=== PATIENT | female | born 1940 | race Caucasian/White ===

== ENCOUNTER 2019-11-14 17:15 | Observation (INO) ==
[2019-11-14] MEDS ORDERED: Isovue-370 500 ML BOTTLE IVP ONE (17:44)
[2019-11-14 18:33] LABS: Basophils % 0.4 %; Eosinophils # 0.1 K/mcL (0.0-0.6); Eosinophils % 1.4 %; Hematocrit 30.9 % (35.3-44.9); Hemoglobin 9.5 g/dL (11.5-15.4); Immature Granulocytes % 0.3 % (0-4); Lymphocytes # 1.7 K/mcL (0.6-4.6); Lymphocytes % 24.2 %; Mean Corpuscular HGB Conc 30.7 g/dL (31.6-35.5); Mean Corpuscular Hemoglobin 27.1 pg (28.0-33.3); Mean Platelet Volume 10.2 fL (9.4-12.4); Monocytes # 0.5 K/mcL (0.0-1.3); Monocytes % 7.1 %; Neutrophils # 4.6 K/mcL (1.6-8.9); Platelet Count 275 K/mcL (140-400); Red Blood Count 3.51 M/mcL (3.82-4.97); Red Cell Distribution Width 13.6 % (11.5-14.5); Segmented Neutrophils % 66.6 %; White Blood Count 6.9 K/mcL (4.3-11.1)
[2019-11-14 18:47] LABS: Bilirubin,Urine Negative (Negative); Blood,Urine Negative (Negative); Clarity,Urine Clear (Clear); Color,Urine Yellow (Yellow); Glucose,Urine (UA) Normal (Normal); Ketones,Urine Negative (Negative); Leukocyte Esterase,Urine Small (Negative); Nitrite,Urine Negative (Negative); PH,Urine 6.5 pH Units (5.0-8.0); Protein,Urine Negative (Neg-Trace); Specific Gravity,Urine 1.009 (1.010-1.025); Urobilinogen,Urine Normal (Normal)
[2019-11-14 18:49] LABS: Bacteria,Urine None Seen per hpf (None-Few); Hyaline Casts,Urine None Seen per lpf (None-Few); RBC,Urine 0-3 per hpf (0-3); Squamous Epithelial Cell,Urine Few per lpf (None-Few); WBC,Urine 0-3 per hpf (0-3)
[2019-11-14 19:04] LABS: Alanine Aminotransferase 10 Units/L (7-52); Albumin/Globulin Ratio 1.5 (1.1-2.2); Alkaline Phosphatase 76 Units/L (34-104); Aspartate Amino Transferase 15 Units/L (13-39); BUN/Creatinine Ratio 17 (6-26); Bilirubin,Direct 0.1 mg/dL (0.0-0.2); Bilirubin,Indirect 0.2 mg/dL (0.0-1.0); Bilirubin,Total 0.3 mg/dL (0.3-1.0); Blood Urea Nitrogen 21 mg/dL (8-23); Calcium 9.8 mg/dL (8.6-10.3); Carbon Dioxide 31 mEq/L (23-29); Chloride 99 mEq/L (98-107); Globulin 2.6 g/dL (2.4-3.5); Glucose 177 mg/dL (70-105); Osmolality,Calculated 291 (280-300); Potassium 4.2 mEq/L (3.5-5.1); Sodium 137 mEq/L (136-145); Total Protein 6.6 g/dL (6.4-8.9); eGFR For African Americans 52 (> 60); eGFR For Non-African Americans 43 (> 60)
[2019-11-14 19:11] LABS: Troponin I < 0.03 ng/mL (< 0.04)
[2019-11-14 21:54] LABS: INR 1.2; Prothrombin Time 13.1 Seconds (9.4-12.1)
[2019-11-14] MEDS ORDERED: Ondansetron 4 MG/2 ML VIAL IVP PRN (22:54)
[2019-11-14] MEDS ORDERED: Naloxone 0.4 MG/ML INJ IVP PRN (22:54)
[2019-11-14] MEDS ORDERED: Dextrose Gel 15 GM/37.5 ML TUBE PO PRN ×2 (23:00)
[2019-11-14] MEDS ORDERED: *HR* Dextrose 50 % in Water (Syg) 50 ML SYRINGE IVP PRN (23:00)
[2019-11-14] MEDS ORDERED: 0.9 % Sodium Chloride 1,000 ML IVC SCH (23:00)
[2019-11-14] MEDS ORDERED: D5% in Water 1,000 ML IVC PRN (23:00)
[2019-11-15] MEDS: Acetaminophen 325 MG TABLET PO PRN ×2 (00:05→05:45)
[2019-11-15] MEDS: Insulin LISPRO 300 UNITS/3 ML VIAL SQ SCH ×5 (00:20→21:21)
[2019-11-15 03:55] LABS: Estimated Average Glucose 235 mg/dl
[2019-11-15 05:58] LABS: Hematocrit 30.8 % (35.3-44.9); Hemoglobin 9.4 g/dL (11.5-15.4); Mean Corpuscular HGB Conc 30.5 g/dL (31.6-35.5); Mean Corpuscular Hemoglobin 27.4 pg (28.0-33.3); Mean Corpuscular Volume 89.8 fL (83.0-100.0); Mean Platelet Volume 11.2 fL (9.4-12.4); Platelet Count 270 K/mcL (140-400); Red Blood Count 3.43 M/mcL (3.82-4.97); Red Cell Distribution Width 13.9 % (11.5-14.5); White Blood Count 7.3 K/mcL (4.3-11.1)
[2019-11-15 06:25] LABS: Calcium 9.6 mg/dL (8.6-10.3); Potassium 3.9 mEq/L (3.5-5.1)
[2019-11-15] MEDS: Gabapentin 300 MG CAPSULE PO SCH ×4 (08:57→21:20)
[2019-11-15] MEDS ORDERED: Loratadine 10 MG TABLET PO SCH (09:00)
[2019-11-15] MEDS ORDERED: Lisinopril 20 MG TABLET PO SCH (09:00)
[2019-11-15] MEDS ORDERED: Furosemide 40 MG TABLET PO SCH (09:00)
[2019-11-15] MEDS ORDERED: amLODIPine 5 MG TABLET PO SCH (10:00)
[2019-11-16 07:16] VITALS: BP 176/68
[2019-11-16] MEDS ORDERED: Lisinopril 20 MG TABLET PO SCH (09:00)
== END 2019-11-16 09:43 | disposition home or self-care (01) ==
LOC: 3BNU 17:15 → EMEROOARM 17:15 → 3BNU 23:04
PROVIDERS: ADMIT Family Medicine; ATTEND Family Medicine

== ENCOUNTER 2020-12-07 19:43 | Inpatient (IN) ==
[2020-12-07] MEDS ORDERED: Ondansetron 4 MG/2 ML VIAL IVP PRN (21:28)
[2020-12-07] MEDS ORDERED: Naloxone 0.4 MG/ML INJ IVP PRN (21:28)
[2020-12-07] MEDS ORDERED: Dextrose Gel 15 GM/37.5 ML TUBE PO PRN ×2 (21:35)
[2020-12-07] MEDS ORDERED: D5% in Water 1,000 ML IVC PRN (21:35)
[2020-12-07] MEDS ORDERED: *HR* Dextrose 50 % in Water (Vial) 50 ML VIAL IVP PRN (21:35)
[2020-12-07] MEDS: 0.9 % Sodium Chloride 1,000 ML IVC SCH (22:34)
[2020-12-08] MEDS: *HR* OxyCODONE/APAP 10/325 TABLET PO PRN ×2 (03:54→11:10)
[2020-12-08] MEDS: 0.9 % Sodium Chloride 1,000 ML IVC SCH ×2 (05:32→18:14)
[2020-12-08 05:34] LABS: INR 1.4; Prothrombin Time 15.8 Seconds (9.4-12.1)
[2020-12-08 06:01] LABS: Basophils % 0.3 %; Red Blood Count 2.65 M/mcL (3.82-4.97); Red Cell Distribution Width 16.2 % (11.5-14.5)
[2020-12-08 06:02] LABS: Eosinophils # 0.1 K/mcL (0.0-0.6); Eosinophils % 0.7 %; Hematocrit 22.8 % (35.3-44.9); Hemoglobin 6.3 g/dL (11.5-15.4); Immature Granulocytes % 0.3 % (0-4); Lymphocytes # 1.1 K/mcL (0.6-4.6); Lymphocytes % 16.4 %; Mean Corpuscular HGB Conc 27.6 g/dL (31.6-35.5); Mean Corpuscular Hemoglobin 23.8 pg (28.0-33.3); Mean Platelet Volume 10.1 fL (9.4-12.4); Monocytes # 0.6 K/mcL (0.0-1.3); Monocytes % 8.3 %; Platelet Count 203 K/mcL (140-400); White Blood Count 6.8 K/mcL (4.3-11.1)
[2020-12-08 06:14] LABS: Albumin/Globulin Ratio 1.4 (1.1-2.2); Bilirubin,Total 0.3 mg/dL (0.3-1.0); Calcium 8.5 mg/dL (8.6-10.3); Globulin 2.8 g/dL (2.4-3.5); Magnesium 1.6 mg/dL (1.6-2.6); Phosphorous 4.8 mg/dL (2.7-4.5); Potassium 3.9 mEq/L (3.5-5.1); Total Protein 6.8 g/dL (6.4-8.9)
[2020-12-08 07:11] LABS: Folate > 22.3 ng/mL (3.0-16.0); Vitamin B12 151 pg/mL (250-1100)
[2020-12-08] MEDS: Apixaban 5 MG TABLET PO SCH ×2 (07:59→20:55)
[2020-12-08] MEDS: Insulin LISPRO 300 UNITS/3 ML VIAL SUBQ SCH ×4 (08:19→20:56)
[2020-12-08] MEDS: Acetaminophen 325 MG TABLET PO PRN (08:20)
[2020-12-08 10:10] LABS: Hemoglobin 7.5 g/dL (11.5-15.4)
[2020-12-08 10:28] LABS: % Iron Saturation 3 % (15-50); Iron 13 mcg/dL (50-170); Transferrin 293 mg/dL (203-362)
[2020-12-08 10:47] LABS: Ferritin 22 ng/mL (10-120)
[2020-12-08] MEDS: Cyanocobalamin (B-12) 1,000 MCG/ML VIAL SQ SCH (11:10)
[2020-12-08] MEDS: Gabapentin 300 MG CAPSULE PO SCH (20:55)
[2020-12-09 03:10] LABS: Basophils % 0.2 %; Eosinophils # 0.1 K/mcL (0.0-0.6); Hematocrit 24.8 % (35.3-44.9); Hemoglobin 7.3 g/dL (11.5-15.4); Immature Granulocytes % 0.4 % (0-4); Lymphocytes # 1.3 K/mcL (0.6-4.6); Lymphocytes % 15.6 %; Mean Corpuscular HGB Conc 29.4 g/dL (31.6-35.5); Mean Corpuscular Hemoglobin 24.3 pg (28.0-33.3); Mean Corpuscular Volume 82.7 fL (83.0-100.0); Mean Platelet Volume 10.1 fL (9.4-12.4); Monocytes # 0.7 K/mcL (0.0-1.3); Monocytes % 8.5 %; Platelet Count 255 K/mcL (140-400); Red Cell Distribution Width 16.1 % (11.5-14.5); Segmented Neutrophils % 74.3 %; White Blood Count 8.1 K/mcL (4.3-11.1)
[2020-12-09 03:32] LABS: Calcium 9.1 mg/dL (8.6-10.3)
[2020-12-09] MEDS: Apixaban 5 MG TABLET PO SCH ×2 (09:26→20:53)
[2020-12-09] MEDS: Gabapentin 300 MG CAPSULE PO SCH ×3 (09:26→20:53)
[2020-12-09] MEDS: Insulin LISPRO 300 UNITS/3 ML VIAL SUBQ SCH ×4 (09:30→20:39)
[2020-12-09] MEDS: Cyanocobalamin (B-12) 1,000 MCG/ML VIAL SQ SCH (09:31)
[2020-12-09] MEDS: Acetaminophen 325 MG TABLET PO PRN (10:42)
[2020-12-09] MEDS: 0.9 % Sodium Chloride 1,000 ML IVC SCH (10:45)
[2020-12-09] MEDS: *HR* OxyCODONE/APAP 10/325 TABLET PO PRN (20:53)
[2020-12-09 23:19] LABS: Protein/Creatinine Ratio,Urine 0.53 mg/mg (0.00-0.20); Sodium, Urine 53.2 mEq/L
[2020-12-10 03:17] LABS: Basophils % 0.4 %; Mean Platelet Volume 10.6 fL (9.4-12.4); Red Cell Distribution Width 16.4 % (11.5-14.5)
[2020-12-10 03:19] LABS: Eosinophils # 0.1 K/mcL (0.0-0.6); Hematocrit 25.7 % (35.3-44.9); Hemoglobin 7.1 g/dL (11.5-15.4); Immature Granulocytes % 0.4 % (0-4); Lymphocytes # 1.6 K/mcL (0.6-4.6); Lymphocytes % 23.5 %; Mean Corpuscular HGB Conc 27.6 g/dL (31.6-35.5); Mean Corpuscular Hemoglobin 24.2 pg (28.0-33.3); Mean Corpuscular Volume 87.7 fL (83.0-100.0); Monocytes # 0.6 K/mcL (0.0-1.3); Neutrophils # 4.6 K/mcL (1.6-8.9); Platelet Count 237 K/mcL (140-400); Red Blood Count 2.93 M/mcL (3.82-4.97); Segmented Neutrophils % 66.7 %; White Blood Count 6.9 K/mcL (4.3-11.1)
[2020-12-10 03:36] LABS: Calcium 8.9 mg/dL (8.6-10.3); Potassium 3.8 mEq/L (3.5-5.1)
[2020-12-10 03:41] LABS: Platelet Estimate Normal (Normal)
[2020-12-10] MEDS: 0.9 % Sodium Chloride 1,000 ML IVC SCH (05:41)
[2020-12-10] MEDS: Gabapentin 300 MG CAPSULE PO SCH ×3 (09:41→20:27)
[2020-12-10] MEDS: Metoprolol XL (24 HR) Succ 25 MG TAB.ER.24H PO SCH (09:41)
[2020-12-10] MEDS: Apixaban 5 MG TABLET PO SCH ×2 (09:43→20:27)
[2020-12-10] MEDS: Cyanocobalamin (B-12) 1,000 MCG/ML VIAL SQ SCH (09:43)
[2020-12-10] MEDS: Insulin LISPRO 300 UNITS/3 ML VIAL SUBQ SCH ×4 (09:43→20:27)
[2020-12-10] MEDS: *HR* OxyCODONE/APAP 10/325 TABLET PO PRN ×2 (10:43→20:41)
[2020-12-10] MEDS: Acetaminophen 325 MG TABLET PO PRN (16:19)
[2020-12-10] MEDS: Insulin DETEMIR 100 UNIT/ML X5UNITS SUBQ SCH (20:31)
[2020-12-11 01:01] LABS: Basophils % 0.4 %; Eosinophils # 0.1 K/mcL (0.0-0.6); Eosinophils % 1.3 %; Hematocrit 23.8 % (35.3-44.9); Immature Granulocytes % 0.4 % (0-4); Mean Corpuscular HGB Conc 29.4 g/dL (31.6-35.5); Mean Corpuscular Hemoglobin 24.1 pg (28.0-33.3); Mean Corpuscular Volume 82.1 fL (83.0-100.0); Mean Platelet Volume 10.7 fL (9.4-12.4); Monocytes # 0.6 K/mcL (0.0-1.3); Monocytes % 8.4 %; Platelet Count 249 K/mcL (140-400); Red Cell Distribution Width 16.1 % (11.5-14.5); Segmented Neutrophils % 59.5 %; White Blood Count 6.8 K/mcL (4.3-11.1)
[2020-12-11 01:22] LABS: Calcium 9.3 mg/dL (8.6-10.3); Potassium 4.1 mEq/L (3.5-5.1)
[2020-12-11] MEDS: *HR* OxyCODONE/APAP 10/325 TABLET PO PRN ×3 (08:06→21:37)
[2020-12-11] MEDS: Apixaban 5 MG TABLET PO SCH ×2 (08:07→19:50)
[2020-12-11] MEDS: Cyanocobalamin (B-12) 1,000 MCG/ML VIAL SQ SCH (08:07)
[2020-12-11] MEDS: Gabapentin 300 MG CAPSULE PO SCH ×3 (08:07→19:50)
[2020-12-11] MEDS: Metoprolol XL (24 HR) Succ 25 MG TAB.ER.24H PO SCH (08:07)
[2020-12-11] MEDS: Insulin LISPRO 300 UNITS/3 ML VIAL SUBQ SCH ×4 (08:07→19:50)
[2020-12-11 13:31] LABS: Hematocrit 24.4 % (35.3-44.9); Hemoglobin 7.3 g/dL (11.5-15.4)
[2020-12-11] MEDS: Insulin DETEMIR 100 UNIT/ML X5UNITS SUBQ SCH (19:50)
[2020-12-12 05:00] LABS: Basophils % 0.5 %; Eosinophils # 0.1 K/mcL (0.0-0.6); Eosinophils % 1.8 %; Hematocrit 23.6 % (35.3-44.9); Hemoglobin 6.9 g/dL (11.5-15.4); Immature Granulocytes % 0.3 % (0-4); Lymphocytes # 2.1 K/mcL (0.6-4.6); Mean Corpuscular HGB Conc 29.2 g/dL (31.6-35.5); Mean Corpuscular Hemoglobin 24.3 pg (28.0-33.3); Mean Corpuscular Volume 83.1 fL (83.0-100.0); Mean Platelet Volume 10.8 fL (9.4-12.4); Monocytes # 0.5 K/mcL (0.0-1.3); Monocytes % 8.3 %; Neutrophils # 3.4 K/mcL (1.6-8.9); Platelet Count 283 K/mcL (140-400); Red Blood Count 2.84 M/mcL (3.82-4.97); Red Cell Distribution Width 16.2 % (11.5-14.5); Segmented Neutrophils % 55.1 %; White Blood Count 6.2 K/mcL (4.3-11.1)
[2020-12-12 05:30] LABS: Calcium 9.7 mg/dL (8.6-10.3)
[2020-12-12] MEDS ORDERED: 0.9 % Sodium Chloride 250 ML IVC SCH (07:30)
[2020-12-12] MEDS: Insulin LISPRO 300 UNITS/3 ML VIAL SUBQ SCH ×4 (09:06→20:35)
[2020-12-12] MEDS: Apixaban 5 MG TABLET PO SCH ×2 (09:07→20:44)
[2020-12-12] MEDS: Gabapentin 300 MG CAPSULE PO SCH ×3 (09:07→20:44)
[2020-12-12] MEDS: Metoprolol XL (24 HR) Succ 25 MG TAB.ER.24H PO SCH (09:07)
[2020-12-12] MEDS: Cyanocobalamin (B-12) 1,000 MCG/ML VIAL SQ SCH (09:08)
[2020-12-12] MEDS: *HR* OxyCODONE/APAP 10/325 TABLET PO PRN ×2 (09:37→15:43)
[2020-12-12] MEDS: *HR* HYDROcodone/Acet 5/325 mg TABLET PO PRN (20:43)
[2020-12-12] MEDS: Insulin DETEMIR 100 UNIT/ML X5UNITS SUBQ SCH (20:44)
[2020-12-13 02:46] LABS: Basophils % 0.5 %; Eosinophils # 0.1 K/mcL (0.0-0.6); Eosinophils % 1.5 %; Hematocrit 29.6 % (35.3-44.9); Immature Granulocytes % 0.4 % (0-4); Lymphocytes # 2.4 K/mcL (0.6-4.6); Lymphocytes % 29.5 %; Mean Corpuscular HGB Conc 30.1 g/dL (31.6-35.5); Mean Corpuscular Volume 83.1 fL (83.0-100.0); Mean Platelet Volume 10.4 fL (9.4-12.4); Monocytes # 0.6 K/mcL (0.0-1.3); Platelet Count 317 K/mcL (140-400); Red Blood Count 3.56 M/mcL (3.82-4.97); Red Cell Distribution Width 16.2 % (11.5-14.5); Segmented Neutrophils % 61.1 %; White Blood Count 8.1 K/mcL (4.3-11.1)
[2020-12-13 02:47] LABS: Hemoglobin 8.9 g/dL (11.5-15.4)
[2020-12-13 03:08] LABS: Calcium 10.1 mg/dL (8.6-10.3); Potassium 4.1 mEq/L (3.5-5.1)
[2020-12-13] MEDS: *HR* HYDROcodone/Acet 5/325 mg TABLET PO PRN (05:29)
[2020-12-13] MEDS: Apixaban 5 MG TABLET PO SCH ×2 (07:44→20:32)
[2020-12-13] MEDS: Cyanocobalamin (B-12) 1,000 MCG/ML VIAL SQ SCH (07:45)
[2020-12-13] MEDS: Metoprolol XL (24 HR) Succ 25 MG TAB.ER.24H PO SCH (07:45)
[2020-12-13] MEDS: Gabapentin 300 MG CAPSULE PO SCH ×3 (07:45→20:31)
[2020-12-13] MEDS: Insulin LISPRO 300 UNITS/3 ML VIAL SUBQ SCH ×4 (07:46→20:32)
[2020-12-13] MEDS ORDERED: amLODIPine 5 MG TABLET PO SCH (09:00)
[2020-12-13] MEDS: amLODIPine 5 MG TABLET PO SCH (09:56)
[2020-12-13] MEDS: *HR* OxyCODONE/APAP 10/325 TABLET PO PRN ×2 (12:05→20:31)
[2020-12-13] MEDS: Insulin DETEMIR 100 UNIT/ML X5UNITS SUBQ SCH (20:32)
[2020-12-14 02:04] LABS: Basophils % 0.3 %; Eosinophils # 0.1 K/mcL (0.0-0.6); Hematocrit 27.3 % (35.3-44.9); Hemoglobin 8.4 g/dL (11.5-15.4); Immature Granulocytes % 0.3 % (0-4); Lymphocytes # 1.9 K/mcL (0.6-4.6); Lymphocytes % 28.8 %; Mean Corpuscular HGB Conc 30.8 g/dL (31.6-35.5); Mean Corpuscular Hemoglobin 25.5 pg (28.0-33.3); Mean Corpuscular Volume 82.7 fL (83.0-100.0); Mean Platelet Volume 10.1 fL (9.4-12.4); Monocytes # 0.5 K/mcL (0.0-1.3); Platelet Count 302 K/mcL (140-400); Red Cell Distribution Width 16.5 % (11.5-14.5); Segmented Neutrophils % 61.6 %; White Blood Count 6.5 K/mcL (4.3-11.1)
[2020-12-14 02:24] LABS: Calcium 9.7 mg/dL (8.6-10.3); Potassium 3.7 mEq/L (3.5-5.1)
[2020-12-14] MEDS: *HR* OxyCODONE/APAP 10/325 TABLET PO PRN ×2 (03:04→12:01)
[2020-12-14] MEDS: Apixaban 5 MG TABLET PO SCH (09:01)
[2020-12-14] MEDS: amLODIPine 5 MG TABLET PO SCH (09:03)
[2020-12-14] MEDS: Metoprolol XL (24 HR) Succ 25 MG TAB.ER.24H PO SCH (09:03)
[2020-12-14] MEDS: Gabapentin 300 MG CAPSULE PO SCH ×2 (09:03→14:56)
[2020-12-14] MEDS: Cyanocobalamin (B-12) 1,000 MCG/ML VIAL SQ SCH (09:04)
[2020-12-14] MEDS: Insulin LISPRO 300 UNITS/3 ML VIAL SUBQ SCH ×3 (09:11→17:03)
[2020-12-14 11:09] VITALS: BP 165/63
[2020-12-14 15:57] LABS: Influenza A PCR Negative (Negative); Influenza B PCR Negative (Negative); Resp. Syncytial Virus PCR Negative (Negative)
[2020-12-14 16:33] LABS: SARS-CoV-2 by PCR (In House) Negative (Negative)
[2020-12-14] MEDS: *HR* HYDROcodone/Acet 5/325 mg TABLET PO PRN (17:10)
[2020-12-15] MEDS ORDERED: Cyanocobalamin (B-12) 1,000 MCG TABLET PO SCH (09:00)
== END 2020-12-14 17:51 | DRG 683 ==
LOC: 2ANU → SUATTDRO 12-08 16:15 → 2ANU 12-08 19:29
PROVIDERS: ADMIT Family Medicine; ATTEND Internal Medicine

== ENCOUNTER 2021-02-02 14:46 | Observation (INO) ==
[2021-02-02 15:38] LABS: Hematocrit 34.8 % (35.3-44.9); Hemoglobin 10.8 g/dL (11.5-15.4); Mean Corpuscular Hemoglobin 27.1 pg (28.0-33.3); Mean Corpuscular Volume 87.4 fL (83.0-100.0); Mean Platelet Volume 10.7 fL (9.4-12.4); Platelet Count 268 K/mcL (140-400); Red Blood Count 3.98 M/mcL (3.82-4.97); Red Cell Distribution Width 17.4 % (11.5-14.5); White Blood Count 6.8 K/mcL (4.3-11.1)
[2021-02-02 15:58] LABS: BUN/Creatinine Ratio 20 (6-26); Blood Urea Nitrogen 35 mg/dL (8-23); Calcium 10.1 mg/dL (8.6-10.3); Carbon Dioxide 25 mEq/L (23-29); Chloride 100 mEq/L (98-107); Glucose 256 mg/dL (70-105); Osmolality,Calculated 293 (280-300); Potassium 4.5 mEq/L (3.5-5.1); Sodium 133 mEq/L (136-145); Troponin I < 0.03 ng/mL (< 0.04); eGFR For African Americans 34 (> 60); eGFR For Non-African Americans 28 (> 60)
[2021-02-02 16:11] LABS: Bilirubin,Urine Negative (Negative); Blood,Urine Negative (Negative); Clarity,Urine Clear (Clear); Color,Urine Colorless (Yellow); Glucose,Urine (UA) 500 mg/dL (Normal); Ketones,Urine Negative (Negative); Leukocyte Esterase,Urine Negative (Negative); Mucus,Urine Few per lpf (None-Few); Nitrite,Urine Negative (Negative); Protein,Urine Negative (Neg-Trace); Specific Gravity,Urine 1.007 (1.010-1.025); Squamous Epithelial Cell,Urine Few per hpf (None-Few); Urobilinogen,Urine Normal (Normal); WBC,Urine 0-3 per hpf (0-3)
[2021-02-02] MEDS ORDERED: Ondansetron 4 MG/2 ML VIAL IVP PRN (17:08)
[2021-02-02] MEDS ORDERED: Naloxone 0.4 MG/ML INJ IVP PRN (17:08)
[2021-02-02] MEDS ORDERED: D5% in Water 1,000 ML IVC PRN (17:14)
[2021-02-02] MEDS ORDERED: *HR* Dextrose 50 % in Water (Vial) 50 ML VIAL IVP PRN (17:14)
[2021-02-02] MEDS ORDERED: Dextrose Gel 15 GM/37.5 ML TUBE PO PRN ×2 (17:14)
[2021-02-02] MEDS ORDERED: Ringers Solution, Lactated 1,000 ML IVC SCH (17:15)
[2021-02-02] MEDS ORDERED: Gabapentin 300 MG CAPSULE PO PRN (18:00)
[2021-02-02] MEDS: *HR* OxyCODONE/APAP 10/325 TABLET PO PRN (20:03)
[2021-02-02] MEDS: Insulin DETEMIR 100 UNIT/ML X5UNITS SUBQ SCH (20:09)
[2021-02-03 06:12] LABS: Basophils % 0.7 %; Eosinophils # 0.1 K/mcL (0.0-0.6); Eosinophils % 2.4 %; Hematocrit 33.7 % (35.3-44.9); Hemoglobin 10.5 g/dL (11.5-15.4); Immature Granulocytes % 0.4 % (0-4); Lymphocytes # 1.9 K/mcL (0.6-4.6); Lymphocytes % 35.5 %; Mean Corpuscular HGB Conc 31.2 g/dL (31.6-35.5); Mean Corpuscular Hemoglobin 27.5 pg (28.0-33.3); Mean Corpuscular Volume 88.2 fL (83.0-100.0); Mean Platelet Volume 10.4 fL (9.4-12.4); Monocytes # 0.5 K/mcL (0.0-1.3); Monocytes % 8.4 %; Neutrophils # 2.8 K/mcL (1.6-8.9); Platelet Count 240 K/mcL (140-400); Red Blood Count 3.82 M/mcL (3.82-4.97); Red Cell Distribution Width 17.7 % (11.5-14.5); Segmented Neutrophils % 52.6 %; White Blood Count 5.4 K/mcL (4.3-11.1)
[2021-02-03 06:36] LABS: Calcium 9.9 mg/dL (8.6-10.3); Magnesium 2.1 mg/dL (1.6-2.6); Phosphorous 3.7 mg/dL (2.7-4.5); Potassium 3.9 mEq/L (3.5-5.1)
[2021-02-03] MEDS: Insulin LISPRO 300 UNITS/3 ML VIAL SUBQ SCH ×3 (08:05→17:29)
[2021-02-03] MEDS: Cholecalciferol (D-3) 1,000 UNIT (25MCG) TABLET PO SCH (08:08)
[2021-02-03] MEDS: Folic Acid 1 MG TABLET PO SCH (08:08)
[2021-02-03] MEDS: Cyanocobalamin (B-12) 1,000 MCG TABLET PO SCH (08:08)
[2021-02-03] MEDS: amLODIPine 5 MG TABLET PO SCH (08:08)
[2021-02-03] MEDS: Insulin DETEMIR 100 UNIT/ML X5UNITS SUBQ SCH ×2 (08:24→21:32)
[2021-02-03] MEDS: *HR* OxyCODONE/APAP 10/325 TABLET PO PRN ×2 (08:24→21:32)
[2021-02-03] MEDS ORDERED: Metoprolol XL (24 HR) Succ 50 MG TAB.ER.24H PO SCH (09:00)
[2021-02-03] MEDS: Apixaban 5 MG TABLET PO SCH ×2 (09:36→21:26)
[2021-02-03] MEDS: 0.9 % Sodium Chloride 1,000 ML IVC SCH (12:27)
[2021-02-04] MEDS: 0.9 % Sodium Chloride 1,000 ML IVC SCH ×2 (03:31→15:14)
[2021-02-04 04:02] LABS: Calcium 9.5 mg/dL (8.6-10.3); Magnesium 1.9 mg/dL (1.6-2.6); Phosphorous 3.3 mg/dL (2.7-4.5); Potassium 4.2 mEq/L (3.5-5.1)
[2021-02-04 04:28] LABS: Folate 17.6 ng/mL (3.0-16.0)
[2021-02-04] MEDS: *HR* OxyCODONE/APAP 10/325 TABLET PO PRN ×2 (06:43→20:49)
[2021-02-04] MEDS: Insulin LISPRO 300 UNITS/3 ML VIAL SUBQ SCH ×3 (07:52→16:22)
[2021-02-04] MEDS: Cyanocobalamin (B-12) 1,000 MCG TABLET PO SCH (08:32)
[2021-02-04] MEDS: Folic Acid 1 MG TABLET PO SCH (08:32)
[2021-02-04] MEDS: amLODIPine 5 MG TABLET PO SCH (08:33)
[2021-02-04] MEDS: Apixaban 5 MG TABLET PO SCH ×2 (08:33→20:48)
[2021-02-04] MEDS: Insulin DETEMIR 100 UNIT/ML X5UNITS SUBQ SCH ×2 (08:33→20:50)
[2021-02-04] MEDS: Cholecalciferol (D-3) 1,000 UNIT (25MCG) TABLET PO SCH (08:33)
[2021-02-05] MEDS: 0.9 % Sodium Chloride 1,000 ML IVC SCH (04:23)
[2021-02-05 05:01] LABS: Albumin 3.6 g/dL (3.5-5.7); Albumin/Globulin Ratio 1.5 (1.1-2.2); Bilirubin,Total 0.3 mg/dL (0.3-1.0); Calcium 9.4 mg/dL (8.6-10.3); Globulin 2.4 g/dL (2.4-3.5); Potassium 3.9 mEq/L (3.5-5.1)
[2021-02-05] MEDS: *HR* OxyCODONE/APAP 10/325 TABLET PO PRN (05:20)
[2021-02-05 07:40] VITALS: BP 166/73
[2021-02-05] MEDS: Insulin LISPRO 300 UNITS/3 ML VIAL SUBQ SCH (07:40)
[2021-02-05] MEDS: amLODIPine 5 MG TABLET PO SCH (09:12)
[2021-02-05] MEDS: Cyanocobalamin (B-12) 1,000 MCG TABLET PO SCH (09:13)
[2021-02-05] MEDS: Apixaban 5 MG TABLET PO SCH (09:13)
[2021-02-05] MEDS: Folic Acid 1 MG TABLET PO SCH (09:13)
[2021-02-05] MEDS: Cholecalciferol (D-3) 1,000 UNIT (25MCG) TABLET PO SCH (09:13)
[2021-02-05] MEDS: Insulin DETEMIR 100 UNIT/ML X5UNITS SUBQ SCH (09:14)
== END 2021-02-05 14:01 | disposition home or self-care (01) ==
LOC: 3BNU 14:46 → EMEROOARM 14:46 → SUATTDRO 17:15 → 3BNU 18:10
PROVIDERS: ADMIT Internal Medicine; ATTEND Registered Nurse